=== PATIENT | female | born 1985 ===

== ENCOUNTER 2020-12-23 18:28 | Emergency (ER) | payer OTHER ==
[~2020-12-23] VITALS: Ht 160 cm; Wt 77.3 kg
[2020-12-23 18:34] VITALS: BP 191/12
== END 2020-12-23 22:34 | disposition left against medical advice (07) ==
LOC: EMS 18:39
DX: M79.622 Pain in left upper arm (principal); Z53.21 Procedure and treatment not carried out due to patient leaving prior to being seen by health care provider